=== PATIENT | female | born 1970 | race Caucasian/White ===

== ENCOUNTER 2020-11-13 04:31 | Day surgery (SDC) | payer BC ==
[2020-11-11 16:55] VITALS: BMI 28.3
[2020-11-13 09:14] VITALS: TEMP 98
[2020-11-13 11:12] VITALS: BP 122/69; PULSE 65
== END 2020-11-13 10:19 | disposition home or self-care (01) ==
LOC: JASU-ENDO 04:31
PROVIDERS: ATTEND Internal Medicine Gastroenterology
PROC: 0DJD8ZZ Inspection of Lower Intestinal Tract, Via Natural or Artificial Opening Endoscopic (ICD-10-PCS; principal; 2020-11-13 08:30)
DX: Z12.11 Encounter for screening for malignant neoplasm of colon (principal); K64.8 Other hemorrhoids
CPT/HCPCS: 81025